=== PATIENT | female | born 1980 | race African-American/Black ===

== ENCOUNTER 2021-01-24 23:39 | Emergency (ER) | payer BC, OTHER ==
[2021-01-24 23:52] VITALS: BP 131/80; PULSE 86; TEMP 98.7; BMI 25.1
[2021-01-25] MEDS ORDERED: IBUPROFEN 400 MG TABLET (FP) PO ONE ×2 (00:09→00:11)
[2021-01-25 01:27] LABS: HCG,QUALITATIVE URINE Negative
[2021-01-25 01:28] LABS: PH,URINE 5.5 (5.0-8.0); URINE APPEARANCE CLEAR; URINE BILIRUBIN NEGATIVE (NEGATIVE); URINE COLOR YELLOW; URINE GLUCOSE (UA) NEGATIVE (NEGATIVE); URINE KETONE TRACE (NEGATIVE); URINE LEUK ESTERASE 1+ (NEGATIVE); URINE NITRITE NEGATIVE (NEGATIVE); URINE PROTEIN NEGATIVE (NEGATIVE); URINE UROBILINOGEN 0.2 mg/dL (0.2-1.0)
[2021-01-25 01:41] LABS: EPI CELLS 16.5 /uL (0-25.1); HYALINE CASTS 1.14 /uL (0-3.1); URINE RBC 5.5 /uL (0-23.9); URINE WBC 35.3 /uL (0-25.8)
[2021-01-25 01:42] LABS: URINE BACTERIA 911.3 /uL (0-1359)
== END 2021-01-25 01:55 | disposition home or self-care (01) ==
LOC: FER 23:39
DX: R22.42 Localized swelling, mass and lump, left lower limb (principal)
CPT/HCPCS: 81003; 84703; 93971-TC; 99284-25